=== PATIENT | female | born 1985 | race Caucasian/White ===

== ENCOUNTER 2016-07-24 16:44 | Emergency (ER) | payer SELFPAY ==
[2016-07-24] MEDS ORDERED: ONDANSETRON HCL/PF 2 MG/ML VIAL IV ONE (17:39)
--- NOTE | 2016-07-24 17:39 | ERNOTE ---
Abdominal HPI - Narrative Date of Service: 07/24/16 - General Chief Complaint: Abdominal Pain Time Seen by Provider: 07/24/16 17:16 Source: patient Exam Limitations: no limitations - Immun/Allergies/Home Medications Immunizatons: IMMUNIZATION HX Immunizations Up to Date No History of Influenza Vaccine No Hx Pneumococcal Vaccination No Allergies/Adverse Reactions: Allergies No Known Allergies Allergy (Verified 07/24/16 17:07) Home Medications: HOME MEDICATIONS NK [No Home Medication] 07/24/16 [Last Taken Unknown] - History of Present Illness Narrative: Pt presents to the ED with c/o pain in abdomen upper right quadrant. Pt states it started last night. Pt states food and lying down makes it worse. Nothing makes it better. Pt states the pain is a constant shooting/aching/sharp pain. Pt rates pain at 10/10. Pt states she had a bowel movement this am. Pt admits to nausea without vomiting. No constipation or diarrhea. Pt had 4 months ago without complications. Pt denies fever, chills, nasal congestion, sore throat, shortness of breath, or chest pain. Date (Duration): 07/23/16 Time (Timing): 21:00 Timing: getting worse Review of Systems - Review of Systems Constitutional: Present: no symptoms reported. Absent: recent illness, fever, chills, weakness, fatigue, decreased activity level EYE: Present: no symptoms reported. Absent: eye pain ENT: Present: no symptoms reported. Absent: ear pain, nose congestion, sore throat Respiratory: Present: no symptoms reported. Absent: shortness of breath, cough Cardiology: Present: no symptoms reported. Absent: chest pain, palpitations Gastrointestinal/Abdominal: Present: nausea, abdominal pain - right upper quadrant 10/10. Absent: vomiting, diarrhea, constipation, eating less, drinking less Genitourinary: Present: no symptoms reported. Absent: frequency, pain Musculoskeletal: Present: back pain - right lower back pain Skin: Present: no symptoms reported. Absent: rash, change in color Neurological: Present: no symptoms reported. Absent: anxiety, headache, dizziness/light-headedness, numbness, tingling Endocrine: Present: no symptoms reported. Absent: excessive sweating, intolerance to heat, intolerance to cold Hematologic/Lymphatic: Present: no symptoms reported. Absent: easy bruising Psych: Present: no symptoms reported. Absent: anxiety, depressed All Other Systems: All systems neg except as marked - Patient's Past Medical History Patient History - Medical: No pertinent hx Patient History - Cardiac/Respiratory: No pertinent hx Patient History - Cancer: No Hx of Cancer Patient History - Surgical Procedures: Patient History - Other: None - Social History Living Situations: home Abuse History: No History of abuse Psych History: No pertinent hx Smoking Status: Former smoker Have you smoked in the past 12 months: No Alcohol Use: none Drug Use: none - Immunizations Immunizations Up to Date: No Hx Pneumococcal Vaccination: No History of Influenza Vaccine: No Physical Exam - Physical Exam General Appearance: Present: wd/wn, alert, mild distress. Absent: anxious, lethargic Eye Exam: Normal inspection: bilateral, PERRL: bilateral, EOMI: bilateral Ears, Nose, Throat: Present: hearing grossly normal Neck: Present: normal inspection, nontender, full range of motion Respiratory: Present: no respiratory distress, normal breath sounds, no accessory muscle use, chest nontender, lungs clear. Absent: crackles, rales, rhonchi, stridor, wheezing Cardiovascular/Chest: Present: regular rate, rhythm, no murmur, normal peripheral pulses. Absent: irregularly irregular Gastrointestinal/Abdominal: Present: normal bowel sounds, nondistended, soft, no organomegaly, tenderness - right upper quadrant, McBurney sign. Absent: abnormal bowel sounds, distended, guarding, Obturator sign, Psoas sign Back Exam: Present: normal inspection, normal range of motion, no vertebral tenderness, CVA tenderness (R). Absent: no CVA tenderness, CVA tenderness (L) Extremity Exam: Present: normal inspection, non-tender, no edema, normal range of motion. 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 Absent: pallor, skin rash Lymphatic Exam: Present: no adenopathy ED Progress - Date and Time Seen: Date and Time: 07/24/16 22:[address] Victor and he added her to his schedule at 08:00 tomorrow. Will send her home tonight. 07/24/16 22:03 07/24/16 22:03 - Vital Signs Patient's Vital Signs:: I have reviewed the patient's vital signs. Vital Signs: Vital Signs 07/24/16 17:02 Temperature 36.5 C Pulse Rate 63 Respiratory 18 Rate Blood Pressure 131/68 O2 Sat by Pulse 99 Oximetry - CT/Ultrasound CT/Ultrasound Narrative: Ultrasound with multiple mobile stones and hepatomegaly - Progress/Reassessment Chief Complaint: Abdominal Pain Progress:: Improved Departure - Departure Clinical Impression: Cholecystitis Disposition: Home self-care Condition: Good Instructions: Cholelithiasis, Cholecystitis, [id number] Additional Instructions: Follow up with Dr. Victor in clinic on 07/25/16 at 8:00am. No solid food rest of the night and morning. May have water until 4:00am, then nothing by mouth.
[2016-07-24] MEDS ORDERED: KETOROLAC TROMETHAMINE 30 MG/ML VIAL IV ONE (17:40)
[2016-07-24] MEDS ORDERED: NORMAL SALINE 1,000 ML IV ONE (17:40)
[2016-07-24 17:52] LABS: Hematocrit 41.4 % (37.0-47.0); Hemoglobin 13.7 gm/dL (12.5-16.0); Mean Cell Volume 85.5 fl (78-100); Mean Corpuscular Hemoglobin 28.3 pg (27-31); Mean Corpuscular Hgb Conc 33.1 g/dl (32-36); Mean Platelet Volume 9.9 fl (6.0-9.5); Neutrophil # 12.5 K/mm3 (1.3-6.0); Neutrophil % 84.2 % (42-75.0); Platelet Count 250 K/mm3 (150-450); Red Blood Count 4.84 M/mm3 (4.2-5.4); Red Cell Distribution Width 13.8 % (11.5-14.0); White Blood Count 14.9 K/mm3 (4.0-10.5)
[2016-07-24] MEDS ORDERED: ONDANSETRON HCL/PF 2 MG/ML VIAL ONE (18:04)
[2016-07-24] MEDS ORDERED: KETOROLAC TROMETHAMINE 30 MG/ML VIAL ONE (18:04)
[2016-07-24 18:05] LABS: Albumin * 3.7 gm/dl (3.4-5.0); Anion Gap 13.3 mmol/L (6.8-13.8); BUN/Creatinine Ratio 16.2 (9.0-21.6); Bilirubin, Total 0.3 mg/dL (0.0-1.1); Calcium * 9.1 mg/dL (7.9-10.9); Carbon Dioxide 29.6 mmol/L (24-32.6); Potassium 3.9 mmol/L (3.4-4.6); Total Protein 7.8 gm/dL (6.2-8.2)
[2016-07-24 18:37] LABS: Urine Bilirubin Negative (NEGATIVE); Urine Blood Negative /ul (NEGATIVE); Urine Ketone Negative (NEGATIVE); Urine Nitrite Negative (NEGATIVE); Urine Protein Negative (NEGATIVE); Urine Urobilinogen Normal (NORMAL)
[2016-07-24 18:46] LABS: Urine Appearance Clear; Urine Bacteria None Seen; Urine Color Yellow; Urine RBC None Seen /hpf (0-5); Urine WBC None Seen /hpf (0-5)
[2016-07-24] MEDS ORDERED: ONDANSETRON 4 MG TAB.RAPDIS PO ONE (22:07)
[2016-07-24] MEDS ORDERED: oxyCODONE HCL/ACETAMINOPHEN 1 TAB TABLET PO ONE (22:07)
[2016-07-24] MEDS ORDERED: oxyCODONE HCL/ACETAMINOPHEN 1 TAB TABLET ONE (22:17)
[2016-07-24] MEDS ORDERED: ONDANSETRON 4 MG TAB.RAPDIS ONE (22:17)
[2016-07-24 22:27] VITALS: BP 136/72
== END 2016-07-24 22:25 | disposition home or self-care (01) ==
LOC: ER 16:44
DX: K81.9 Cholecystitis, unspecified (principal)

== ENCOUNTER 2016-07-25 10:46 | Day surgery (SDC) | payer SELFPAY ==
[~2016-07-25 10:46] MED LIST: RINGERS SOLUTION,LACTATED 1,000 ML IV PRN; ceFAZolin SODIUM 2 GM in DEXTROSE 5 % IN WATER 50 ML IV PRN
[2016-07-25] MEDS ORDERED: RINGERS SOLUTION,LACTATED 1,000 ML IV ONE ×2 (11:21→14:02)
[2016-07-25] MEDS ORDERED: BUPIVACAINE HCL/EPINEPHRINE 50 ML VIAL IJ ONE (12:05)
--- NOTE | 2016-07-25 13:52 | OR ---
Operative Report - Dictated Report Narrative: DATE OF OPERATION: 07/25/2016 PREOPERATIVE DIAGNOSIS: Cholelithiasis and cholecystitis POSTOPERATIVE DIAGNOSIS: Cholelithiasis and cholecystitis. Infarcted epiploic appendage OPERATION: Laparoscopic cholecystectomy. Excision of infarcted epiploic appendage SURGEON: CEM Victor MD ANESTHESIA Gen. pro Perez CRNA INDICATIONS FOR PROCEDURE: The patient is a 31-year-old female who presented to the emergency room in April at also last night with right upper quadrant pain nausea and vomiting. Ultrasound shows cholelithiasis. FINDINGS: Cholelithiasis and cholecystitis. Infarcted epiploic appendage left lower quadrant NARRATIVE OF PROCEDURE: The patient was identified preoperatively. Prior to the administration of anesthetic a multidisciplinary timeout observed. With the patient in the supine position, SCDs were placed, 2 g of intravenous Ancef administered, and general endotracheal anesthetic administered. The patient's abdomen was prepped with Betadine solution and a generous operating field outlined with 4 sterile towels. The remainder the patient was covered with a sterile disposable drape. An infraumbilical skin incision was made. Dissection was carried along the umbilical stalk until the fascia of the linea alba was encountered. This was incised. The peritoneum was then elevated and incised to allow entry into the abdomen under direct vision. A Hussan cannula was placed, and the abdomen insufflated with CO2. The laparoscopic camera was introduced and the abdomen briefly explored. Those portions of the liver, stomach, and gallbladder visualized appeared grossly normal. There was stool in the colon. In the left lower quadrant was an infarcted epiploic appendage attached to the lateral abdominal wall. Next under direct vision 3 additional working ports were inserted through separate skin incisions, one in the subxiphoid, one in the right upper quadrant, and one in the right flank. The infarcted epiploic appendage was carefully inspected to confirm that this was what it was. The gallbladder was then decompressed with a needle and the puncture site grasped. The apex of the gallbladder was retracted cephalad. The expected location of the cystic duct was exposed. The cystic duct was dissected free for a sufficient distance for confident identification. It was doubly clipped and divided. The cystic artery was identified doubly clipped and divided. The gallbladder was then removed from the liver bed by retrograde electrocautery dissection. Prior to severing the last attachments of the gallbladder the liver bed was inspected and found to be hemostatic with no evidence of bile leak. The previously placed clips were seen to be intact. The right upper quadrant was suctioned clean. The last attachments of the gallbladder were divided. It was placed in an Endobag and parked in the lower abdomen. The twisted ends of the epiploic appendage were then doubly clipped and divided. They appeared hemostatic. The infarcted fat was then placed in the Endobag which was then withdrawn to the umbilical port. The smaller working ports were withdrawn under direct vision to ensure entry site hemostasis. The gallbladder was removed in conjunction with the Hussan cannula. The pneumoperitoneum was allowed to escape, and after receiving a correct sponge needle and instrument count attention was turned to closing the abdomen. The fascia and peritoneum at the umbilicus were approximated with interrupted sutures of #1 Vicryl. Skin incisions were approximated with interrupted vertical mattress sutures of 4-0 nylon. The operative sites were washed and dried. Dressings of Bactroban ointment and large Band-Aids were applied to the small port sites. The umbilical incision was dressed with Bactroban ointment, 2 x 2, large Band-Aid and Medipore tape. The operative procedure was terminated at this point. The patient tolerated the anesthetic and procedure well without complication. There was no measurable blood loss. The gallbladder and fat were submitted to pathology. 0.5% Marcaine with epinephrine was used for local anesthetic infiltration. The patient was transferred to the recovery room awake, extubated, and in stable condition. The patient remained stable throughout a period of postoperative observation. She was able to tolerate po intake and was up without assistance. Her pain was controlled with PO Percocet. Her dressings remained dry. I reviewed the operative findings with her and her and she was given copies of the photographs which appear in the medical record. The patient was discharged home with instructions not to lift and not to drive. She is to leave the current dressings dry and intact for 48 hours, but then may shower and change the dressings daily or as needed. She was given phone numbers to call prn signs of wound infection or hematoma. The patient was given a prescription for Percocet 5/325mg #30 1-2 PO Q4-6hrs prn pain and Reglan 10mg # 4 1 PO Q6hrs prn nausea. A return office appointment was made for one week. Reviewed and electronically signed
[2016-07-25] MEDS ORDERED: oxyCODONE HCL/ACETAMINOPHEN 1 TAB TABLET PO PRN (14:18)
[2016-07-25] MEDS ORDERED: MORPHINE SULFATE 2 MG/ML DISP.SYRIN IV PRN (14:19)
[2016-07-25] MEDS ORDERED: METOCLOPRAMIDE HCL 5 MG/ML VIAL IV ONE ×2 (14:44→14:45)
[2016-07-25] MEDS ORDERED: ONDANSETRON HCL/PF 2 MG/ML VIAL IV ONE ×2 (14:44→14:45)
[2016-07-25 16:27] VITALS: BP 104/59
== END 2016-07-25 10:47 | disposition home or self-care (01) ==
LOC: AMB 10:46
PROVIDERS: ATTEND Surgery
PROC: 0DBE4ZX Excision of Large Intestine, Percutaneous Endoscopic Approach, Diagnostic (ICD-10-PCS; 2016-07-25)
PROC: 0FT44ZZ Resection of Gallbladder, Percutaneous Endoscopic Approach (ICD-10-PCS; principal; 2016-07-25 12:05)
DX: K80.12 Calculus of gallbladder with acute and chronic cholecystitis without obstruction (principal); K55.049 Acute infarction of large intestine, extent unspecified; Z68.34 Body mass index [BMI] 34.0-34.9, adult